=== PATIENT | male | born 1970 | race Caucasian/White ===

== ENCOUNTER 2016-11-13 14:42 | Emergency (ER) | payer BC ==
[2016-11-13] MEDS ORDERED: Ondansetron 4 MG/2 ML SDV IVPUSH ONE (15:15)
[2016-11-13] MEDS ORDERED: HYDROmorphone 2 MG/ML SDV IVPUSH ONE ×2 (15:15→17:22)
[2016-11-13] MEDS ORDERED: Ciprofloxacin 500 MG Tab PO ONE (17:14)
[2016-11-13] MEDS ORDERED: Acetaminophen/oxyCODONE 325-5 MG Tab PO ONE (17:14)
[2016-11-13 17:34] VITALS: BP 136/82
--- NOTE | 2016-11-17 13:15 | ER ---
DATE SEEN: 11/13/2016 HISTORY OF PRESENT ILLNESS: This 46-year-old man comes in and states he had 10/10 left groin pain. [place]. He has a past medical history of renal stones. This would be his fourth stone in the last 5 to 6 years. He denies dehydration, had some alcohol. He has mild testicle pain. No difficulty passing urine. No hematuria. No fever. No chills. He has mild left posterior flank discomfort. No history of hypertension. MEDICATIONS: Trintellix, (rosuvastatin) Crestor. PHYSICAL EXAMINATION: VITAL SIGNS: Blood pressure 145/87, heart rate 73, respirations 18, oxygen saturation 94%, temperature is 36.9 degrees centigrade. GENERAL: The patient is attended by his . A pleasant fellow, well-muscled. HEENT: TMs negative. Pharynx without abnormality. NECK: Supple. No thyromegaly or masses. No cervical adenopathy. LUNGS: Clear to auscultation without wheezes, rales, or rhonchi. HEART: S1 and S2. No murmur. No irregular rate or rhythm. ABDOMEN/: Soft. No guarding. No abdominal discomfort. Has mild left groin discomfort. No hernia demonstrated. No pulse demonstrated. Testicles, minimal discomfort. Penis is circumcised. Rectal, not performed. Right testicle not tender. No groin pain on the right side. DIAGNOSIS: Probable renal stone. Treat clinically. PLAN: Use pain medicine. Flomax. Push fluids. Strain urine for stones. No CAT scan performed. Follow up with doctor in 24 to 48 hours, or earlier if any question of fever, vomiting, loss of control of pain. Otherwise, see doctor in a week. /[id number] TERRY/GISELLA POTTER
== END 2016-11-13 17:30 | disposition home or self-care (01) ==
LOC: FB.ED 14:42
DX: N50.811 Right testicular pain (principal); N50.812 Left testicular pain
CPT/HCPCS: 81001; 96374; 96375; 96376; 99283; A9270; J1170; J2405